=== PATIENT | female | born 1940 | race Caucasian/White ===

== ENCOUNTER 2016-12-01 10:15 | Emergency (ER) | payer OTHER ==
[2016-12-01 10:21] VITALS: TEMP 98.2
[2016-12-01] MEDS ORDERED: ONDANSETRON 4 MG/2 ML VIAL IVPB ONE (10:48)
[2016-12-01] MEDS ORDERED: morphine CARPU-JECT 2 MG/1 ML DISP.SYRIN IVPUSH ONE (10:48)
[2016-12-01] MEDS ORDERED: morphine CARPU-JECT 2 MG/1 ML DISP.SYRIN ONE (11:03)
[2016-12-01] MEDS ORDERED: ONDANSETRON 4 MG/2 ML VIAL ONE (11:04)
[2016-12-01 11:08] LABS: BASOPHIL 0.5 % (0-2.0); EOSINOPHIL 2.1 % (0-4.5); MCH 31.8 pg (25.7-33.7); MCHC 33.8 g/dl (32.0-36.0); MEAN PLT VOLUME 9.1 fl (7.5-11.1); NEUTROPHILS 67.8 % (42.8-82.8); PLATELET COUNT 228 K/MM3 (134-434); WHITE BLOOD COUNT 6.5 K/mm3 (4.0-10.0)
[2016-12-01 11:33] LABS: INR 1.06 (0.82-1.09); PROTHROMBIN TIME (PATIENT) 11.7 SEC (9.98-11.88)
[2016-12-01 11:36] LABS: ALBUMIN 3.3 g/dl (3.4-5.0); ANION GAP 9 (8-16); BILIRUBIN,TOTAL 0.3 mg/dL (0.2-1.0); CALCIUM 9.3 mg/dL (8.5-10.1); CO2 33 mmol/L (21-32); CREATININE 0.7 mg/dL (0.55-1.02); GLUCOSE,RANDOM 96 mg/dL (74-106); SGOT/AST 19 U/L (15-37); SGPT/ALT 20 U/L (12-78)
[2016-12-01 11:39] LABS: ALK PHOS 86 U/L (45-117); TOT PROT 7.2 g/dl (6.4-8.2); TROPONIN I < 0.02 ng/ml (0.00-0.05)
--- NOTE | 2016-12-01 11:39 | PDOC ---
History of Present Illness <Kaushik Franco - Last Filed: 12/01/16 15:11> - History of Present Illness Initial Comments: 12/01/16 12:58 The patient is a 76 year old female, with a significant past medical history of hypertension, kidney stones, who presents to the emergency department with positional right upper quadrant pain for 8 days. The patient states her pain is localized to the right upper quadrant of her abdomen with radiation to her back. She reports her pain is exacerbated with movement, but denies pain after eating. She reports having a laparoscopic procedure done in 2013. After reviewing the patients charts, the laparoscopic procedure was a cholecystectomy. She denies chest pain, shortness of breath, headache and dizziness. She denies fever, chills, nausea, vomit, diarrhea and constipation. She denies dysuria, frequency, urgency and hematuria. Allergies: NKDA Past surgical history: cholecystectomy 2013, hernia repair PCP - Dr. Perera <Ivy Mccormack - Last Filed: 12/01/16 15:21> - General Chief Complaint: Pain, Acute Stated Complaint: ABD PAIN Time Seen by Provider: 12/01/16 10:20 Past History - Past Medical History HTN: Yes Kidney Stones: Yes - Psycho/Social/Smoking Cessation Hx Anxiety: No Suicidal Ideation: No Smoking Status: No Smoking History: Never smoked Have you smoked in the past 12 months: No Number of Cigarettes Smoked Daily: 0 Information on smoking cessation initiated: No Hx Alcohol Use: No Drug/Substance Use Hx: No Substance Use Type: None Hx Substance Use Treatment: No <Kaushik Franco - Last Filed: 12/01/16 15:11> <Ivy Mccormack - Last Filed: 12/01/16 15:21> - Past Medical History Allergies/Adverse Reactions: Allergies Allergy/AdvReac Type Severity Reaction Status Date / Time No Known Allergies Allergy Verified 12/01/16 10:18 Home Medications: Ambulatory Orders Aspirin [Baby Aspirin] 81 mg PO DAILY 09/24/11 Captopril/Hydrochlorothiazide [Capozide 50/25 -] 1 tab PO DAILY 09/24/11 Omeprazole 20 mg PO DAILY 12/01/16 Review of Systems - Review of Systems Able to Perform ROS?: Yes Comments:: 12/01/16 12:59 GENERAL/CONSTITUTIONAL: No fever or chills. No weakness. HEAD, EYES, EARS, NOSE AND THROAT: No change in vision. No ear pain or discharge. No sore throat. CARDIOVASCULAR: No chest pain or shortness of breath. RESPIRATORY: No cough, wheezing, or hemoptysis. GASTROINTESTINAL: (+) RUQ pain with radiation to right back. No nausea, vomiting , diarrhea or constipation. GENITOURINARY: No dysuria, frequency, or change in urination. MUSCULOSKELETAL: No joint or muscle swelling or pain. No neck pain. SKIN: No rash NEUROLOGIC: No headache, vertigo, loss of consciousness, or change in strength/ sensation. ENDOCRINE: No increased thirst. No abnormal weight change. HEMATOLOGIC/LYMPHATIC: No anemia, easy bleeding, or history of blood clots. ALLERGIC/IMMUNOLOGIC: No hives or skin allergy. <Ivy Mccormack - Last Filed: 12/01/16 15:21> *Physical Exam - Vital Signs Last Vital Signs Temp Pulse Resp BP Pulse Ox 98.2 F 88 20 188/103 98 12/01/16 10:19 12/01/16 10:19 12/01/16 10:19 12/01/16 10:19 12/01/16 10:19 <Kaushik Franco - Last Filed: 12/01/16 15:11> - Vital Signs Last Vital Signs Temp Pulse Resp BP Pulse Ox 98.2 F 80 20 163/91 97 12/01/16 10:19 12/01/16 11:40 12/01/16 11:40 12/01/16 11:40 12/01/16 11:40 - Physical Exam Comments: 12/01/16 13:00 GENERAL: Awake, alert, and fully oriented, in no acute distress HEAD: No signs of trauma EYES: PERRLA, EOMI, sclera anicteric, conjunctiva clear ENT: Auricles normal inspection, hearing grossly normal, nares patent, oropharynx clear without exudates. Moist mucosa NECK: Normal ROM, supple, no lymphadenopathy, JVD, or masses LUNGS: Breath sounds equal, clear to auscultation bilaterally. No wheezes, and no crackles HEART: Regular rate and rhythm, normal S1 and S2, no murmurs, rubs or gallops ABDOMEN: (+) mildly ttp at the RUQ. No CVA tenderness. Soft, normoactive bowel sounds. No guarding, no rebound. No masses EXTREMITIES: Normal range of motion, no edema. No clubbing or cyanosis. No cords, erythema, or tenderness NEUROLOGICAL: Cranial nerves II through XII grossly intact. Normal speech, normal gait SKIN: Warm, Dry, normal turgor, no rashes or lesions noted. <Ivy Mccormack - Last Filed: 12/01/16 15:21> Heart Score/ECG Review - ECG Intrepretation Comment:: 12/01/16 15:20 EKG was read by Dr. Franco at 11:16 Impression: Normal sinus rhythm. Possible left atrial enlargement. Left ventricular hypertrophy. Vent. Rate: 75 bpm TX Interval: 140 ms QTc: 442 ms <Ivy Mccormack - Last Filed: 12/01/16 15:21> ED Treatment Course - LABORATORY CBC & Chemistry Diagram: 12/01/16 11:00 12/01/16 11:00 - ADDITIONAL ORDERS Additional order review: 12/01/16 11:00 RBC 4.28 D MCV 94.0 MCHC 33.8 RDW 13.0 MPV 9.1 Neutrophils % 67.8 Lymphocytes % 20.3 D Monocytes % 9.3 Eosinophils % 2.1 Basophils % 0.5 - RADIOLOGY Radiology Studies Ordered: Category Date Time Status ABDOMEN & PELVIS CT WITH CONTR [CT] Stat CT Scan 12/01/16 10:48 Ordered - Medications Given in the ED: ED Medications Discontinued Medications Generic Name Dose Route Start Last Admin Trade Name Freq PRN Reason Stop Dose Admin Morphine Sulfate 2 mg 12/01/16 10:48 12/01/16 11:09 Morphine Injection - IVPUSH 12/01/16 10:49 2 mg ONCE ONE Administration Ondansetron HCl 4 mg 12/01/16 10:48 12/01/16 11:09 Zofran Injection IVPB 12/01/16 10:49 4 mg ONCE ONE Administration <Kaushik Franco - Last Filed: 12/01/16 15:11> - LABORATORY CBC & Chemistry Diagram: 12/01/16 11:00 12/01/16 11:00 - ADDITIONAL ORDERS Additional order review: Laboratory Results 12/01/16 12/01/16 12/01/16 11:47 11:00 11:00 INR 1.06 Sodium 141 Potassium 4.0 Chloride 99 Carbon Dioxide 33 H Anion Gap 9 BUN 17 D Creatinine 0.7 Creat Clearance w eGFR > 60 Random Glucose 96 Calcium 9.3 Total Bilirubin 0.3 D AST 19 ALT 20 Alkaline Phosphatase 86 D Creatine Kinase 109 Troponin I < 0.02 Total Protein 7.2 D Albumin 3.3 L D Lipase 78 Urine Color Colorless Urine Appearance Clear Urine pH 7.0 Urine Protein Negative Urine Glucose (UA) Negative Urine Ketones Negative Urine Blood Negative Urine Nitrite Negative Urine Bilirubin Negative Urine Urobilinogen Negative Ur Leukocyte Esterase 1+ H 12/01/16 11:00 RBC 4.28 D MCV 94.0 MCHC 33.8 RDW 13.0 MPV 9.1 Neutrophils % 67.8 Lymphocytes % 20.3 D Monocytes % 9.3 Eosinophils % 2.1 Basophils % 0.5 - RADIOLOGY Radiograph Interpretation: 12/01/16 15:[address] was read by Dr. Luo at 14:48 Impression: s/p cholecystectomy with prominent biliary tree. No obvious obstruction is suggested. MRCP follow-up recommended. Tatiana mesentary of uncertain etiology. - Medications Given in the ED: ED Medications Discontinued Medications Generic Name Dose Route Start Last Admin Trade Name Freq PRN Reason Stop Dose Admin Morphine Sulfate 2 mg 12/01/16 10:48 12/01/16 11:09 Morphine Injection - IVPUSH 12/01/16 10:49 2 mg ONCE ONE Administration Ondansetron HCl 4 mg 12/01/16 10:48 12/01/16 11:09 Zofran Injection IVPB 12/01/16 10:49 4 mg ONCE ONE Administration <Ivy Mccormack - Last Filed: 12/01/16 15:21> Medical Decision Making - Medical Decision Making 12/01/16 10:44 The patient is a year old female who presents with RUQ for 8 days with no complaints of nausea or vomiting. The patients medical history is significant for kidney stones, hypertension, sp cholecystectomy. I will obtain abdominal CT scan to rule out pancreatitis, stone in common duct, gastritis <Ivy Mccormack - Last Filed: 12/01/16 15:21> *DC/Admit/Observation/Transfer - Discharge Dispostion Admit: No - Attestations Physician Attestion: 12/01/16 11:38 I, Dr. Kaushik Franco, attest that this document has been prepared under my direction and personally reviewed by me in its entirety. I further attest, that it accurately reflects all work, treatment, procedures and medical decision -making performed by me. <Kaushik Franco - Last Filed: 12/01/16 15:11> - Attestations Scribe Attestion: 12/01/16 13:01 Documentation prepared by Ivy Mccormack, acting as certified medical technician for Kaushik Franco MD <Ivy Mccormack - Last Filed: 12/01/16 15:21> Diagnosis at time of Disposition: Colic, biliary - Discharge Dispostion Disposition: HOME Condition at time of disposition: Improved - Referrals Referrals: Sera Perera MD [Primary Care Provider] - Carlitos Laboy MD [Staff Physician] - - Patient Instructions Additional Instructions: Farhana - Your CT Scan says you might have a gall stone in your common duct and that you need to have an MRCP- YOu need to see Dr Laboy so that they can order the test. Watch your diet until then. Return to us if problems. Best- Dr. Kaushik Ricks
[2016-12-01 12:05] LABS: URINE APPEARANCE CLEAR; URINE BILIRUBIN NEGATIVE (NEGATIVE); URINE BLOOD NEGATIVE (NEGATIVE); URINE COLOR COLORLESS; URINE GLUCOSE (UA) NEGATIVE (NEGATIVE); URINE KETONE NEGATIVE (NEGATIVE); URINE NITRITE NEGATIVE (NEGATIVE); URINE PROTEIN NEGATIVE (NEGATIVE); URINE UROBILINOGEN NEGATIVE E.U./dl (0.2-1.0)
[2016-12-01 12:14] LABS: URINE LEUK ESTERASE 1+ (NEGATIVE)
[2016-12-01 12:58] LABS: URINE WBC 3 /hpf (3-5)
--- NOTE | 2016-12-01 14:03 | EKG ---
Test Reason : Blood Pressure : / mmHG Vent. Rate : 075 BPM Atrial Rate : 075 BPM P-R Int : 140 ms QRS Dur : 102 ms QT Int : 396 ms P-R-T Axes : 039 -28 001 degrees QTc Int : 442 ms NORMAL SINUS RHYTHM POSSIBLE LEFT ATRIAL ENLARGEMENT LEFT VENTRICULAR HYPERTROPHY ABNORMAL ECG WHEN COMPARED WITH ECG OF 16-OCT-2013 01:14, VENT. RATE HAS DECREASED Confirmed by ISABELA THOMPSON MD ([id number]) on 12/01/2016 2:03:26 PM Referred By: Confirmed By:ISABELA THOMPSON MD
[2016-12-01 15:19] VITALS: BP 141/80; PULSE 74
== END 2016-12-01 15:48 | disposition home or self-care (01) ==
LOC: JER 10:15
PROC: 3E033NZ Introduction of Analgesics, Hypnotics, Sedatives into Peripheral Vein, Percutaneous Approach (ICD-10-PCS; principal; 2016-12-01)
PROC: 3E033GC Introduction of Other Therapeutic Substance into Peripheral Vein, Percutaneous Approach (ICD-10-PCS; 2016-12-01)
DX: K80.50 Calculus of bile duct without cholangitis or cholecystitis without obstruction (principal)
CPT/HCPCS: 36415; 74177-TC; 80053; 81003; 81015; 82550; 83690; 84484; 85025; 85610; 93005; 93010; 96374; 96375; 99283-25

== ENCOUNTER 2021-03-08 12:59 | Emergency (ER) | payer OTHER ==
[2021-03-08] MEDS ORDERED: ACETAMINOPHEN 1000 MG/100 ML VIAL (NON FORMULARY) IVPB ONE (13:34)
[2021-03-08 13:46] VITALS: BP 156/74; BMI 28.3
[2021-03-08 13:57] VITALS: PULSE 84; TEMP 98.3
[2021-03-08] MEDS ORDERED: ACETAMINOPHEN INJECTION 100 ML IVPB ONE (14:14)
[2021-03-08 14:41] LABS: BASO % 0.5 % (0-2.0); HEMOGLOBIN 12.5 GM/dL (10.7-15.3); LYMPH % 12.7 % (8-40); MCHC 32.9 g/dl (32.0-36.0); MEAN CELL VOLUME 94.2 fl (80-96); MEAN PLT VOLUME 9.4 fl (7.5-11.1); MONO % 7.6 % (3.8-10.2); NEUT % 78.2 % (42.8-82.8); PLATELET COUNT 267 10^3/uL (134-434); RBC 4.03 M/mm3 (3.60-5.2); RDW 14.1 % (11.6-15.6); WHITE BLOOD COUNT 11.1 K/mm3 (4.0-10.0)
[2021-03-08 15:09] LABS: ALBUMIN 3.3 g/dl (3.4-5.0); BLOOD UREA NITROGEN 16.6 mg/dL (7-18); CALCIUM 8.8 mg/dL (8.5-10.1); CO2 33 mmol/L (21-32); GLUCOSE,RANDOM 128 mg/dL (74-106)
[2021-03-08 15:12] LABS: SGOT/AST 25 U/L (15-37); SGPT/ALT 20 U/L (13-61)
[2021-03-08 15:13] LABS: CREATININE 0.8 mg/dL (0.55-1.3)
[2021-03-08 15:14] LABS: BILIRUBIN,TOTAL 0.4 mg/dL (0.2-1); TOT PROT 7.1 g/dl (6.4-8.2)
[2021-03-08 15:15] LABS: ALK PHOS 79 U/L (45-117)
[2021-03-08 15:38] LABS: ANION GAP 3 MMOL/L (8-16); CHLORIDE 105 mmol/L (98-107); SODIUM 141 mmol/L (136-145)
[2021-03-08] MEDS ORDERED: KETOROLAC TROMETHAMINE 30 MG/1 ML VIAL IVPUSH ONE (17:20)
[2021-03-08] MEDS ORDERED: KETOROLAC TROMETHAMINE 15 MG/ML VIAL ONE (17:30)
[2021-03-08] MEDS ORDERED: DICYCLOMINE HCL 20 MG/2 ML AMPUL IM ONE (18:15)
[2021-03-08] MEDS ORDERED: DICYCLOMINE HCL 10 MG CAPSULE ONE (18:36)
[2021-03-08 18:38] LABS: URINE APPEARANCE CLEAR; URINE BILIRUBIN NEGATIVE (NEGATIVE); URINE COLOR YELLOW; URINE GLUCOSE (UA) NEGATIVE (NEGATIVE); URINE KETONE NEGATIVE (NEGATIVE); URINE LEUK ESTERASE NEGATIVE (NEGATIVE); URINE NITRITE NEGATIVE (NEGATIVE); URINE PROTEIN NEGATIVE (NEGATIVE); URINE UROBILINOGEN 0.2 mg/dL (0.2-1.0)
[2021-03-08] MEDS ORDERED: DICYCLOMINE HCL 10 MG CAPSULE PO ONE (18:39)
[2021-03-08] MEDS ORDERED: LIDOCAINE 5% TOPICAL PATCH TP ONE ×2 (20:12→21:11)
[2021-03-08] MEDS ORDERED: LIDOCAINE 5% TOPICAL PATCH ONE ×2 (20:18→21:26)
[2021-03-08] MEDS ORDERED: LIDOCAINE PATCH REMOVAL MC SCH (22:00)
[2021-03-09] MEDS ORDERED: LIDOCAINE PATCH REMOVAL MC ONE (08:00)
== END 2021-03-08 22:26 | disposition home or self-care (01) ==
LOC: JER 12:59
PROC: 3E0333Z Introduction of Anti-inflammatory into Peripheral Vein, Percutaneous Approach (ICD-10-PCS; principal; 2021-03-08)
PROC: 3E0333Z Introduction of Anti-inflammatory into Peripheral Vein, Percutaneous Approach (ICD-10-PCS; 2021-03-08)
DX: M54.5 Low back pain (principal); R10.32 Left lower quadrant pain
CPT/HCPCS: 36415; 71045-TC-FY; 73523-TC-FY; 74177-TC; 80053; 81003; 83605; 84484; 85025; 87086; 96374; 96375; 99285-25; J0131; Q9967

== ENCOUNTER 2021-03-17 09:50 | Emergency (ER) | payer OTHER ==
[2021-03-17 09:57] VITALS: TEMP 98.4; BMI 36.1
[2021-03-17] MEDS ORDERED: ACETAMINOPHEN 1000 MG/100 ML VIAL (NON FORMULARY) IVPB ONE (10:28)
[2021-03-17] MEDS ORDERED: ACETAMINOPHEN INJECTION 100 ML IVPB ONE (11:20)
[2021-03-17 12:20] LABS: BASO % 0.6 % (0-2.0); HEMATOCRIT 37.3 % (32.4-45.2); HEMOGLOBIN 12.3 GM/dL (10.7-15.3); LYMPH % 22.3 % (8-40); MCH 30.7 pg (25.7-33.7); MEAN PLT VOLUME 9.2 fl (7.5-11.1); MONO % 9.4 % (3.8-10.2); NEUT % 64.7 % (42.8-82.8); PLATELET COUNT 255 10^3/uL (134-434); RBC 4.01 M/mm3 (3.60-5.2); WHITE BLOOD COUNT 7.8 K/mm3 (4.0-10.0)
[2021-03-17 12:25] LABS: CHLORIDE 105 mmol/L (98-107); SODIUM 139 mmol/L (136-145)
[2021-03-17 12:29] LABS: ANION GAP 4 MMOL/L (8-16); BLOOD UREA NITROGEN 10.9 mg/dL (7-18); CALCIUM 8.8 mg/dL (8.5-10.1); CO2 30 mmol/L (21-32); GLUCOSE,RANDOM 98 mg/dL (74-106); LIPASE 48 U/L (73-393)
[2021-03-17 12:32] LABS: CREATININE 0.6 mg/dL (0.55-1.3); SGOT/AST 36 U/L (15-37); SGPT/ALT 23 U/L (13-61)
[2021-03-17 12:33] LABS: BILIRUBIN,TOTAL 0.6 mg/dL (0.2-1)
[2021-03-17 12:34] LABS: TOT PROT 6.8 g/dl (6.4-8.2)
[2021-03-17 12:35] LABS: ALK PHOS 68 U/L (45-117)
[2021-03-17] MEDS ORDERED: SODIUM CHLORIDE 0.9% 500 ML INFUS.BAG IV ONE (15:30)
[2021-03-17 18:10] LABS: URINE APPEARANCE CLEAR; URINE BILIRUBIN NEGATIVE (NEGATIVE); URINE COLOR YELLOW; URINE GLUCOSE (UA) NEGATIVE (NEGATIVE); URINE KETONE NEGATIVE (NEGATIVE); URINE LEUK ESTERASE NEGATIVE (NEGATIVE); URINE NITRITE NEGATIVE (NEGATIVE); URINE PROTEIN NEGATIVE (NEGATIVE)
[2021-03-17 20:44] VITALS: BP 188/102; PULSE 88
== END 2021-03-17 20:46 | disposition home or self-care (01) ==
LOC: JER 09:50
PROC: 3E033GC Introduction of Other Therapeutic Substance into Peripheral Vein, Percutaneous Approach (ICD-10-PCS; principal; 2021-03-17)
DX: R10.32 Left lower quadrant pain (principal)
CPT/HCPCS: 36415; 74177-TC; 80053; 81003; 82550; 83605; 83690; 84484; 85025; 87086; 93005; 93010; 96374; 99285-25; C9803; J0131; Q9967; U0003; U0005

== ENCOUNTER 2021-08-12 13:54 | Emergency (ER) | payer OTHER ==
[2021-08-12 14:59] VITALS: TEMP 98.1; BMI 31.2
[2021-08-12] MEDS ORDERED: ASPIRIN 81 MG CHEWABLE TABLETS PO ONE (16:22)
[2021-08-12] MEDS ORDERED: ASPIRIN 81 MG CHEWABLE TABLETS ONE (16:37)
[2021-08-12] MEDS ORDERED: SODIUM CHLORIDE 0.9% 500 ML INFUS.BAG IV ONE (17:54)
[2021-08-12 18:34] LABS: BASO % 0.3 % (0-2.0); EOS % 1.7 % (0-4.5); HEMATOCRIT 36.5 % (32.4-45.2); LYMPH % 28.1 % (8-40); MCH 29.9 pg (25.7-33.7); MEAN CELL VOLUME 90.7 fl (80-96); MEAN PLT VOLUME 9.3 fl (7.5-11.1); MONO % 11.9 % (3.8-10.2); PLATELET COUNT 238 10^3/uL (134-434); RBC 4.02 M/mm3 (3.60-5.2); WHITE BLOOD COUNT 6.4 K/mm3 (4.0-10.0)
[2021-08-12 18:41] LABS: INR 1.05 (0.83-1.09); PROTHROMBIN TIME (PATIENT) 12.1 SEC (9.7-13.0)
[2021-08-12 18:44] LABS: ACTIVATED PTT 28.4 SECONDS (25.2-36.5)
[2021-08-12 18:51] LABS: ALBUMIN 3.4 g/dl (3.4-5.0); BLOOD UREA NITROGEN 18.8 mg/dL (7-18); CALCIUM 9.1 mg/dL (8.5-10.1)
[2021-08-12 18:54] LABS: CREATININE 0.7 mg/dL (0.55-1.3)
[2021-08-12 18:56] LABS: BILIRUBIN,TOTAL 0.4 mg/dL (0.2-1); TOT PROT 6.7 g/dl (6.4-8.2)
[2021-08-12 19:56] VITALS: BP 146/78; PULSE 85
== END 2021-08-12 20:06 ==
LOC: JER 13:54
DX: I10 Essential (primary) hypertension (principal); R07.89 Other chest pain
CPT/HCPCS: 36415; 71046-TC-FY; 80053; 84484; 85025; 85610; 85730; 93005; 93010; 99284-25; C9803; U0003; U0005

== ENCOUNTER 2021-09-04 08:10 | Observation (INO) | payer OTHER ==
[2021-09-04] MEDS ORDERED: ACETAMINOPHEN 1000 MG/100 ML BAG IVPB ONE (08:48)
[2021-09-04] MEDS ORDERED: ACETAMINOPHEN INJECTION 100 ML IVPB ONE (09:08)
[2021-09-04 09:23] LABS: BASO % 0.5 % (0-2.0); EOS % 2.1 % (0-4.5); HEMATOCRIT 38.6 % (32.4-45.2); HEMOGLOBIN 12.6 GM/dL (10.7-15.3); LYMPH % 22.1 % (8-40); MCHC 32.8 g/dl (32.0-36.0); MEAN CELL VOLUME 91.5 fl (80-96); MEAN PLT VOLUME 9.6 fl (7.5-11.1); MONO % 9.8 % (3.8-10.2); NEUT % 65.5 % (42.8-82.8); PLATELET COUNT 229 10^3/uL (134-434); RBC 4.21 M/mm3 (3.60-5.2); RDW 14.8 % (11.6-15.6)
[2021-09-04 09:45] LABS: ALBUMIN 3.3 g/dl (3.4-5.0); BLOOD UREA NITROGEN 20.5 mg/dL (7-18); CALCIUM 8.8 mg/dL (8.5-10.1)
[2021-09-04 09:46] LABS: MAGNESIUM 2.2 mg/dL (1.8-2.4)
[2021-09-04 09:47] LABS: EPI CELLS 11 /uL (0-25.1); HYALINE CASTS 0 /uL (0-3.1); URINE APPEARANCE CLEAR; URINE BACTERIA 164 /uL (0-1359); URINE BILIRUBIN NEGATIVE (NEGATIVE); URINE COLOR YELLOW; URINE GLUCOSE (UA) NEGATIVE (NEGATIVE); URINE KETONE NEGATIVE (NEGATIVE); URINE LEUK ESTERASE 1+ (NEGATIVE); URINE NITRITE NEGATIVE (NEGATIVE); URINE PROTEIN NEGATIVE (NEGATIVE); URINE RBC 8 /uL (0-23.9); URINE UROBILINOGEN 0.2 mg/dL (0.2-1.0); URINE WBC 9 /uL (0-25.8)
[2021-09-04 09:48] LABS: CREATININE 0.7 mg/dL (0.55-1.3)
[2021-09-04 09:50] LABS: BILIRUBIN,TOTAL 0.4 mg/dL (0.2-1); TOT PROT 6.9 g/dl (6.4-8.2)
[2021-09-04] MEDS ORDERED: ACETAMINOPHEN 325 MG TABLET (FP) PO PRN (11:35)
[2021-09-04] MEDS ORDERED: LISINOPRIL 20 MG TABLET PO ONE (17:31)
[2021-09-04] MEDS: INSULIN SLIDING SCALE (NOVOLOG) 1 VIAL SQ SCH (18:20)
[2021-09-04] MEDS ORDERED: LISINOPRIL 20 MG TABLET ONE (18:49)
[2021-09-04] MEDS ORDERED: ATORVASTATIN CA 40 MG TABLET (FP) ONE (20:55)
[2021-09-04] MEDS ORDERED: GABAPENTIN 100 MG CAPSULE ONE (20:56)
[2021-09-04] MEDS: ATORVASTATIN CA 40 MG TABLET (FP) PO SCH (21:10)
[2021-09-04] MEDS: GABAPENTIN 100 MG CAPSULE PO SCH (21:10)
[2021-09-05 06:36] VITALS: BMI 34.7
[2021-09-05] MEDS: INSULIN SLIDING SCALE (NOVOLOG) 1 VIAL SQ SCH ×3 (06:40→16:37)
[2021-09-05 08:43] LABS: HEMATOCRIT 35.9 % (32.4-45.2); HEMOGLOBIN 11.9 GM/dL (10.7-15.3); MCH 30.2 pg (25.7-33.7); MCHC 33.2 g/dl (32.0-36.0); MEAN CELL VOLUME 90.9 fl (80-96); MEAN PLT VOLUME 9.2 fl (7.5-11.1); PLATELET COUNT 205 10^3/uL (134-434); RBC 3.95 M/mm3 (3.60-5.2); RDW 15.1 % (11.6-15.6); WHITE BLOOD COUNT 6.1 K/mm3 (4.0-10.0)
[2021-09-05 09:22] LABS: BLOOD UREA NITROGEN 20.8 mg/dL (7-18); CALCIUM 8.7 mg/dL (8.5-10.1)
[2021-09-05 09:23] LABS: MAGNESIUM 2.2 mg/dL (1.8-2.4)
[2021-09-05 09:26] LABS: CREATININE 0.7 mg/dL (0.55-1.3); PHOSPHOROUS 3.9 mg/dL (2.5-4.9)
[2021-09-05] MEDS ORDERED: LISINOPRIL 20 MG TABLET PO SCH (10:00)
[2021-09-05] MEDS ORDERED: REGADENOSON 0.4 MG/5 ML PRE-FILLED SYRINGE IVPUSH ONE ×2 (10:00→10:49)
[2021-09-05] MEDS: ENOXAPARIN NA (PORCINE) 40 MG/0.4 ML DISP.SYRIN SQ SCH (12:38)
[2021-09-05] MEDS: FUROSEMIDE 40 MG TABLET (FP) PO SCH (12:38)
[2021-09-05] MEDS: GABAPENTIN 100 MG CAPSULE PO SCH ×2 (12:38→21:24)
[2021-09-05] MEDS: PANTOPRAZOLE 40 MG TABLET PO SCH (12:38)
[2021-09-05] MEDS: ASPIRIN 81 MG CHEWABLE TABLETS PO SCH (12:38)
[2021-09-05] MEDS: LISINOPRIL 20 MG TABLET PO SCH (12:38)
[2021-09-05 13:07] LABS: SARS-CoV-2 NAA Not Detected (Not Detected)
[2021-09-05] MEDS: ATORVASTATIN CA 40 MG TABLET (FP) PO SCH (21:24)
[2021-09-06] MEDS: INSULIN SLIDING SCALE (NOVOLOG) 1 VIAL SQ SCH (06:20)
[2021-09-06 08:21] VITALS: BP 157/79; PULSE 82; TEMP 98
[2021-09-06] MEDS: FUROSEMIDE 40 MG TABLET (FP) PO SCH (09:54)
[2021-09-06] MEDS: ENOXAPARIN NA (PORCINE) 40 MG/0.4 ML DISP.SYRIN SQ SCH (09:54)
[2021-09-06] MEDS: GABAPENTIN 100 MG CAPSULE PO SCH (09:54)
[2021-09-06] MEDS: LISINOPRIL 20 MG TABLET PO SCH (09:54)
[2021-09-06] MEDS: ASPIRIN 81 MG CHEWABLE TABLETS PO SCH (09:54)
[2021-09-06] MEDS: PANTOPRAZOLE 40 MG TABLET PO SCH (09:54)
== END 2021-09-06 13:18 | disposition home or self-care (01) ==
LOC: JER 08:10 → UNDOADMOB 10:44 → JERBED 10:44 → INTOOBSV 10:44 → JERBED 11:32 → J4W 09-05 05:22
PROVIDERS: ADMIT Internal Medicine; ATTEND Internal Medicine
PROC: 3E033NZ Introduction of Analgesics, Hypnotics, Sedatives into Peripheral Vein, Percutaneous Approach (ICD-10-PCS; principal; 2021-09-04)
PROC: 3E023GC Introduction of Other Therapeutic Substance into Muscle, Percutaneous Approach (ICD-10-PCS; 2021-09-04)
PROC: 3E033GC Introduction of Other Therapeutic Substance into Peripheral Vein, Percutaneous Approach (ICD-10-PCS; 2021-09-04)
DX: R07.9 Chest pain, unspecified (principal); E11.9 Type 2 diabetes mellitus without complications; I10 Essential (primary) hypertension; E66.9 Obesity, unspecified; Z68.34 Body mass index [BMI] 34.0-34.9, adult; N20.0 Calculus of kidney; E78.00 Pure hypercholesterolemia, unspecified
CPT/HCPCS: 36415; 71045-TC-FY; 78452-TC; 80048; 80053; 80061; 81003; 82550; 82553; 82962; 83036; 83735; 84100; 84132; 84439; 84443; 84484; 85025; 85027; 87086; 93005; 93010; 93017; 93306-TC; 96372; 96374; 96375; 99285-25; A9502; C9803; G0378; J2785; U0003; U0005

== ENCOUNTER 2021-09-17 10:26 | Emergency (ER) | payer OTHER ==
[2021-09-17 10:33] VITALS: TEMP 98.7; BMI 32.1
[2021-09-17] MEDS ORDERED: ACETAMINOPHEN 325 MG TABLET (FP) PO ONE (11:24)
[2021-09-17] MEDS ORDERED: LISINOPRIL 20 MG TABLET PO ONE (11:35)
[2021-09-17] MEDS ORDERED: LISINOPRIL 20 MG TABLET ONE (11:42)
[2021-09-17] MEDS ORDERED: ACETAMINOPHEN 325 MG TABLET (FP) ONE (11:43)
[2021-09-17 12:12] LABS: BASO % 0.4 % (0-2.0); EOS % 2.7 % (0-4.5); HEMATOCRIT 39.9 % (32.4-45.2); HEMOGLOBIN 13.3 GM/dL (10.7-15.3); LYMPH % 25.8 % (8-40); MCH 30.1 pg (25.7-33.7); MCHC 33.2 g/dl (32.0-36.0); MEAN CELL VOLUME 90.6 fl (80-96); MEAN PLT VOLUME 9.9 fl (7.5-11.1); MONO % 9.6 % (3.8-10.2); NEUT % 61.5 % (42.8-82.8); PLATELET COUNT 203 10^3/uL (134-434); RDW 14.3 % (11.6-15.6); WHITE BLOOD COUNT 7.8 K/mm3 (4.0-10.0)
[2021-09-17 12:20] LABS: INR 1.04 (0.83-1.09)
[2021-09-17 12:32] LABS: CALCIUM 9.3 mg/dL (8.5-10.1)
[2021-09-17 12:33] LABS: ALBUMIN 3.5 g/dl (3.4-5.0); BLOOD UREA NITROGEN 15.4 mg/dL (7-18)
[2021-09-17 12:36] LABS: CREATININE 0.7 mg/dL (0.55-1.3)
[2021-09-17 12:38] LABS: BILIRUBIN,TOTAL 0.8 mg/dL (0.2-1)
[2021-09-17] MEDS ORDERED: hydrOXYzine PAMOATE 25 MG CAPSULE (FP) PO PRN (14:17)
[2021-09-17] MEDS ORDERED: hydrOXYzine PAMOATE 25 MG CAPSULE (FP) PO ONE ×2 (15:03→15:06)
[2021-09-17 16:10] VITALS: BP 162/85; PULSE 75
== END 2021-09-17 17:19 | disposition home or self-care (01) ==
LOC: JER 10:26
DX: R07.9 Chest pain, unspecified (principal)
CPT/HCPCS: 36415; 71046-TC-FY; 71275-TC; 80053; 83735; 84484; 85025; 85379; 85610; 93005; 93010; 99285-25; Q9967

== ENCOUNTER 2021-11-09 15:05 | Observation (INO) | payer OTHER ==
[2021-11-09 18:11] LABS: BASO % 0.7 % (0-2.0); EOS % 1.8 % (0-4.5); HEMATOCRIT 36.8 % (32.4-45.2); HEMOGLOBIN 12.3 GM/dL (10.7-15.3); LYMPH % 26.8 % (8-40); MCH 30.2 pg (25.7-33.7); MCHC 33.3 g/dl (32.0-36.0); MEAN CELL VOLUME 90.4 fl (80-96); MEAN PLT VOLUME 9.4 fl (7.5-11.1); MONO % 15.2 % (3.8-10.2); NEUT % 55.5 % (42.8-82.8); PLATELET COUNT 211 10^3/uL (134-434); RBC 4.07 M/mm3 (3.60-5.2); RDW 14.6 % (11.6-15.6); WHITE BLOOD COUNT 6.4 K/mm3 (4.0-10.0)
[2021-11-09 18:32] LABS: ALBUMIN 3.2 g/dl (3.4-5.0); CALCIUM 9.4 mg/dL (8.5-10.1)
[2021-11-09 18:33] LABS: BLOOD UREA NITROGEN 14.1 mg/dL (7-18)
[2021-11-09 18:35] LABS: CREATININE 0.6 mg/dL (0.55-1.3)
[2021-11-09 18:37] LABS: BILIRUBIN,TOTAL 0.6 mg/dL (0.2-1); TOT PROT 6.8 g/dl (6.4-8.2)
[2021-11-09] MEDS ORDERED: HYDROCHLOROTHIAZIDE 12.5 MG CAPSULE (FP) PO SCH (22:28)
[2021-11-09 23:33] LABS: EPI CELLS 17 /uL (0-25.1); HYALINE CASTS 2 /uL (0-3.1); PH,URINE 5.5 (5.0-8.0); URINE APPEARANCE CLEAR; URINE BACTERIA 50 /uL (0-1359); URINE BILIRUBIN NEGATIVE (NEGATIVE); URINE COLOR YELLOW; URINE GLUCOSE (UA) NEGATIVE (NEGATIVE); URINE KETONE NEGATIVE (NEGATIVE); URINE LEUK ESTERASE 2+ (NEGATIVE); URINE NITRITE NEGATIVE (NEGATIVE); URINE PROTEIN NEGATIVE (NEGATIVE); URINE RBC 4 /uL (0-23.9); URINE WBC 70 /uL (0-25.8)
[2021-11-10] MEDS: INSULIN SLIDING SCALE (NOVOLOG) 1 VIAL SQ SCH ×4 (06:53→21:47)
[2021-11-10 07:26] LABS: BASO % 1.3 % (0-2.0); EOS % 3.7 % (0-4.5); HEMOGLOBIN 12.1 GM/dL (10.7-15.3); MCH 30.5 pg (25.7-33.7); MCHC 33.6 g/dl (32.0-36.0); MEAN CELL VOLUME 90.9 fl (80-96); MEAN PLT VOLUME 10.1 fl (7.5-11.1); MONO % 16.8 % (3.8-10.2); NEUT % 50.2 % (42.8-82.8); PLATELET COUNT 203 10^3/uL (134-434); RBC 3.96 M/mm3 (3.60-5.2); RDW 14.5 % (11.6-15.6); WHITE BLOOD COUNT 5.8 K/mm3 (4.0-10.0)
[2021-11-10 07:46] LABS: CALCIUM 8.8 mg/dL (8.5-10.1); MAGNESIUM 1.9 mg/dL (1.8-2.4)
[2021-11-10 07:47] LABS: BLOOD UREA NITROGEN 16.1 mg/dL (7-18)
[2021-11-10 07:49] LABS: CREATININE 0.6 mg/dL (0.55-1.3); PHOSPHOROUS 4.8 mg/dL (2.5-4.9)
[2021-11-10 07:50] LABS: TOT PROT 6.5 g/dl (6.4-8.2)
[2021-11-10 07:51] LABS: BILIRUBIN,TOTAL 0.5 mg/dL (0.2-1)
[2021-11-10] MEDS ORDERED: PANTOPRAZOLE 40 MG TABLET PO ONE (08:48)
[2021-11-10] MEDS ORDERED: GABAPENTIN 100 MG CAPSULE ONE (08:48)
[2021-11-10] MEDS ORDERED: ASPIRIN COATED 81 MG TABLET.EC ONE (08:48)
[2021-11-10] MEDS ORDERED: ENOXAPARIN NA (PORCINE) 40 MG/0.4 ML DISP.SYRIN SQ ONE (08:49)
[2021-11-10] MEDS: HYDROCHLOROTHIAZIDE 12.5 MG CAPSULE (FP) PO SCH (09:05)
[2021-11-10] MEDS: GABAPENTIN 100 MG CAPSULE PO SCH ×2 (09:05→21:42)
[2021-11-10] MEDS: ASPIRIN COATED 81 MG TABLET.EC PO SCH (09:05)
[2021-11-10] MEDS ORDERED: ENOXAPARIN NA (PORCINE) 40 MG/0.4 ML DISP.SYRIN SQ SCH (10:00)
[2021-11-10] MEDS ORDERED: ASPIRIN 81 MG CHEWABLE TABLETS PO SCH (10:00)
[2021-11-10] MEDS ORDERED: PANTOPRAZOLE 40 MG TABLET PO SCH (10:00)
[2021-11-10] MEDS ORDERED: SIMETHICONE 80 MG TAB.CHEW (FP) PO PRN (11:53)
[2021-11-10] MEDS ORDERED: HEPARIN NA (PORCINE) 5,000 UNITS/ML 1ML VIAL ONE (14:12)
[2021-11-10] MEDS: HEPARIN NA (PORCINE) 5,000 UNITS/ML 1ML VIAL SQ SCH ×2 (14:25→21:42)
[2021-11-10 15:52] VITALS: BMI 33.0
[2021-11-10] MEDS: LISINOPRIL 20 MG TABLET PO SCH (21:42)
[2021-11-11] MEDS: INSULIN SLIDING SCALE (NOVOLOG) 1 VIAL SQ SCH ×4 (06:49→21:51)
[2021-11-11] MEDS: HEPARIN NA (PORCINE) 5,000 UNITS/ML 1ML VIAL SQ SCH ×3 (06:50→21:45)
[2021-11-11] MEDS ORDERED: INSULIN (LEVEMIR) 100 UNITS/ML UNITS SQ ONE (07:04)
[2021-11-11 08:46] LABS: INR 1.08 (0.83-1.09); PROTHROMBIN TIME (PATIENT) 12.4 SEC (9.7-13.0)
[2021-11-11 08:59] LABS: BASO % 0.3 % (0-2.0); EOS % 3.7 % (0-4.5); HEMATOCRIT 36.6 % (32.4-45.2); HEMOGLOBIN 11.9 GM/dL (10.7-15.3); LYMPH % 31.5 % (8-40); MCH 29.8 pg (25.7-33.7); MCHC 32.6 g/dl (32.0-36.0); MEAN CELL VOLUME 91.4 fl (80-96); MEAN PLT VOLUME 10.6 fl (7.5-11.1); MONO % 13.8 % (3.8-10.2); NEUT % 50.7 % (42.8-82.8); PLATELET COUNT 225 10^3/uL (134-434); RDW 14.6 % (11.6-15.6); WHITE BLOOD COUNT 6.1 K/mm3 (4.0-10.0)
[2021-11-11 09:00] LABS: BLOOD UREA NITROGEN 21.4 mg/dL (7-18); CALCIUM 8.8 mg/dL (8.5-10.1); MAGNESIUM 2.1 mg/dL (1.8-2.4)
[2021-11-11 09:03] LABS: CREATININE 0.7 mg/dL (0.55-1.3)
[2021-11-11 09:05] LABS: BILIRUBIN,TOTAL 0.6 mg/dL (0.2-1); TOT PROT 6.5 g/dl (6.4-8.2)
[2021-11-11] MEDS: PANTOPRAZOLE 40 MG TABLET PO SCH (09:46)
[2021-11-11] MEDS: HYDROCHLOROTHIAZIDE 12.5 MG CAPSULE (FP) PO SCH (09:47)
[2021-11-11] MEDS: ASPIRIN COATED 81 MG TABLET.EC PO SCH (09:47)
[2021-11-11] MEDS: GABAPENTIN 100 MG CAPSULE PO SCH ×2 (09:47→21:45)
[2021-11-11] MEDS: LISINOPRIL 20 MG TABLET PO SCH (21:45)
[2021-11-12 05:31] VITALS: BP 130/73; PULSE 81; TEMP 98.1
[2021-11-12] MEDS: HEPARIN NA (PORCINE) 5,000 UNITS/ML 1ML VIAL SQ SCH (06:25)
[2021-11-12] MEDS: INSULIN SLIDING SCALE (NOVOLOG) 1 VIAL SQ SCH ×2 (06:28→11:04)
[2021-11-12 08:15] LABS: BASO % 0.7 % (0-2.0); EOS % 3.2 % (0-4.5); HEMATOCRIT 36.2 % (32.4-45.2); HEMOGLOBIN 12.2 GM/dL (10.7-15.3); LYMPH % 32.4 % (8-40); MCH 30.6 pg (25.7-33.7); MCHC 33.6 g/dl (32.0-36.0); MEAN CELL VOLUME 90.9 fl (80-96); MEAN PLT VOLUME 9.9 fl (7.5-11.1); MONO % 15.1 % (3.8-10.2); NEUT % 48.6 % (42.8-82.8); PLATELET COUNT 205 10^3/uL (134-434); RBC 3.99 M/mm3 (3.60-5.2); RDW 14.4 % (11.6-15.6); WHITE BLOOD COUNT 5.9 K/mm3 (4.0-10.0)
[2021-11-12 08:31] LABS: CALCIUM 9.1 mg/dL (8.5-10.1)
[2021-11-12 08:32] LABS: BLOOD UREA NITROGEN 20.6 mg/dL (7-18)
[2021-11-12 08:35] LABS: CREATININE 0.7 mg/dL (0.55-1.3)
[2021-11-12 08:37] LABS: BILIRUBIN,TOTAL 0.5 mg/dL (0.2-1); TOT PROT 6.5 g/dl (6.4-8.2)
[2021-11-12] MEDS: GABAPENTIN 100 MG CAPSULE PO SCH (09:28)
[2021-11-12] MEDS: HYDROCHLOROTHIAZIDE 12.5 MG CAPSULE (FP) PO SCH (09:28)
[2021-11-12] MEDS: PANTOPRAZOLE 40 MG TABLET PO SCH (09:28)
[2021-11-12] MEDS: ASPIRIN COATED 81 MG TABLET.EC PO SCH (09:28)
== END 2021-11-12 15:13 | disposition home or self-care (01) ==
LOC: JER 15:05 → JERBED 19:20 → J6S 11-10 14:37
PROVIDERS: ADMIT Internal Medicine; ATTEND Nurse Practitioner Family
PROC: 3E013GC Introduction of Other Therapeutic Substance into Subcutaneous Tissue, Percutaneous Approach (ICD-10-PCS; principal; 2021-11-09)
DX: R07.89 Other chest pain (principal); I10 Essential (primary) hypertension; R94.5 Abnormal results of liver function studies; E78.5 Hyperlipidemia, unspecified; E11.9 Type 2 diabetes mellitus without complications; K83.8 Other specified diseases of biliary tract; K71.9 Toxic liver disease, unspecified; E66.9 Obesity, unspecified; Z68.33 Body mass index [BMI] 33.0-33.9, adult; Z79.82 Long term (current) use of aspirin; Z79.84 Long term (current) use of oral hypoglycemic drugs
CPT/HCPCS: 0241U-QW; 36415; 71045-TC-FY; 74181-TC; 76705-TC; 80053; 80061; 80307; 81003; 82550; 82728; 82962; 82977; 83540; 83550; 83690; 83735; 84100; 84443; 84484; 85025; 85610; 86708; 86803; 87340; 87517; 87807; 93005; 93010; 93306-TC; 96372; 99285-25; C9803-CS; G0378; J1644; U0003; U0005

== ENCOUNTER 2022-07-19 18:59 | Inpatient (IN) | payer OTHER ==
[2022-07-19 19:27] VITALS: BMI 33.2
[2022-07-19] MEDS ORDERED: LACTATED RINGERS SOLUTION 1000 ML INFUS.BAG IV ONE (20:13)
[2022-07-19] MEDS ORDERED: DEXAMETHASONE SOD PHOSPHATE 10 MG/1 ML VIAL IVPUSH ONE (20:13)
[2022-07-19] MEDS ORDERED: DEXAMETHASONE SOD PHOSPHATE 10 MG/1 ML VIAL ONE (20:14)
[2022-07-19] MEDS ORDERED: MAGNESIUM SULF 50% (8.12 MEQ/2 ML-1 GM VIAL) IVPB ONE (20:14)
[2022-07-19] MEDS ORDERED: ASPIRIN 81 MG CHEWABLE TABLETS PO ONE (20:14)
[2022-07-19] MEDS ORDERED: MAGNESIUM SULFATE IN WATER 2 GM/50 ML IVPB IVPB ONE (20:15)
[2022-07-19] MEDS ORDERED: ASPIRIN 81 MG CHEWABLE TABLETS ONE (20:15)
[2022-07-19 20:26] LABS: BASO % 0.4 % (0-2.0); HEMATOCRIT 38.6 % (32.4-45.2); HEMOGLOBIN 12.7 GM/dL (10.7-15.3); LYMPH % 33.2 % (8-40); MCH 30.1 pg (25.7-33.7); MCHC 32.8 g/dl (32.0-36.0); MEAN CELL VOLUME 91.6 fl (80-96); MEAN PLT VOLUME 9.3 fl (7.5-11.1); NEUT % 56.4 % (42.8-82.8); PLATELET COUNT 241 10^3/uL (134-434); RBC 4.21 M/mm3 (3.60-5.2); RDW 15.1 % (11.6-15.6); WHITE BLOOD COUNT 11.9 K/mm3 (4.0-10.0)
[2022-07-19 20:33] LABS: INR 1.01 (0.83-1.09); PROTHROMBIN TIME (PATIENT) 11.6 SEC (9.7-13.0)
[2022-07-19 20:36] LABS: ACTIVATED PTT 29.9 SECONDS (25.2-36.5)
[2022-07-19] MEDS ORDERED: TERBUTALINE SULFATE 1 MG/1 ML VIAL SQ ONE ×2 (20:41→21:15)
[2022-07-19 20:54] LABS: VENOUS BASE EXCESS -1.8 mmol/L (-2-2); VENOUS O2 SATURATION 21.6 % (70-80); VENOUS PCO2 50.7 mmHg (38-52); VENOUS PH 7.316 (7.310-7.410)
[2022-07-19 20:57] LABS: N-TERMINAL BNP 2089.7 pg/ml (5-450)
[2022-07-19] MEDS ORDERED: ALBUTEROL SO4 0.083% IH SOL 2.5 MG/3 ML VIAL.NEB. NEB ONE ×2 (21:10→21:16)
[2022-07-19] MEDS ORDERED: FUROSEMIDE 40 MG/4 ML INJECTABLE VIAL IVPUSH ONE (21:11)
[2022-07-19 21:28] LABS: CALCIUM 9.1 mg/dL (8.5-10.1)
[2022-07-19 21:29] LABS: ALBUMIN 3.2 g/dl (3.4-5.0); MAGNESIUM 1.6 mg/dL (1.8-2.4)
[2022-07-19 21:34] LABS: BILIRUBIN,TOTAL 0.5 mg/dL (0.2-1)
[2022-07-19 21:36] LABS: BLOOD UREA NITROGEN 19.7 mg/dL (7-18)
[2022-07-19] MEDS ORDERED: CEFTRIAXONE 1,000 MG in DEXTROSE 5%-WATER - 50 ML IVPB ONE (22:45)
[2022-07-19] MEDS ORDERED: AZITHROMYCIN IVPB 500 MG in DEXTROSE 5%-WATER - 250 ML IVPB ONE (22:47)
[2022-07-20] MEDS ORDERED: FUROSEMIDE 40 MG/4 ML INJECTABLE VIAL ONE (00:27)
[2022-07-20] MEDS: INSULIN SLIDING SCALE (NOVOLOG) 1 VIAL SQ SCH ×4 (06:25→22:33)
[2022-07-20] MEDS: CEFTRIAXONE 1 GM in DEXTROSE 5%-WATER - 50 ML IVPB SCH (10:39)
[2022-07-20] MEDS: LISINOPRIL 20 MG TABLET PO SCH (10:39)
[2022-07-20] MEDS: ENOXAPARIN NA (PORCINE) 40 MG/0.4 ML DISP.SYRIN SQ SCH (10:39)
[2022-07-20] MEDS: AZITHROMYCIN 500 MG TABLET PO SCH (11:12)
[2022-07-20] MEDS ORDERED: MAGNESIUM SULF 50% (8.12 MEQ/2 ML-1 GM VIAL) IVPB ONE (12:30)
[2022-07-20] MEDS: FUROSEMIDE 40 MG/4 ML INJECTABLE VIAL IVPUSH SCH (13:30)
[2022-07-21] MEDS: FUROSEMIDE 40 MG/4 ML INJECTABLE VIAL IVPUSH SCH ×2 (05:50→15:26)
[2022-07-21] MEDS: INSULIN SLIDING SCALE (NOVOLOG) 1 VIAL SQ SCH ×4 (06:12→21:21)
[2022-07-21] MEDS ORDERED: FAMOTIDINE 20 MG TABLET PO SCH (10:00)
[2022-07-21] MEDS: LISINOPRIL 20 MG TABLET PO SCH (10:16)
[2022-07-21] MEDS: ASPIRIN COATED 81 MG TABLET.EC PO SCH (10:16)
[2022-07-21] MEDS: ENOXAPARIN NA (PORCINE) 40 MG/0.4 ML DISP.SYRIN SQ SCH (10:16)
[2022-07-21] MEDS: AZITHROMYCIN 500 MG TABLET PO SCH (10:17)
[2022-07-21] MEDS: CEFTRIAXONE 1 GM in DEXTROSE 5%-WATER - 50 ML IVPB SCH (10:18)
[2022-07-21 10:23] LABS: BASO % 0.3 % (0-2.0); EOS % 0.2 % (0-4.5); HEMOGLOBIN 12.2 GM/dL (10.7-15.3); LYMPH % 19.2 % (8-40); MCH 29.7 pg (25.7-33.7); MEAN PLT VOLUME 9.3 fl (7.5-11.1); MONO % 8.3 % (3.8-10.2); PLATELET COUNT 261 10^3/uL (134-434); RBC 4.11 M/mm3 (3.60-5.2); RDW 14.9 % (11.6-15.6); WHITE BLOOD COUNT 10.1 K/mm3 (4.0-10.0)
[2022-07-21 10:42] LABS: CHOLESTEROL 169 mg/dL (50-200); TRIGLYCERIDES 72 mg/dL (0-150)
[2022-07-21 10:43] LABS: LDL CHOLESTEROL (ONLY SJRH) 99 mg/dL (5-100)
[2022-07-21 10:45] LABS: BILIRUBIN,TOTAL 0.6 mg/dL (0.2-1); HDL CHOLESTEROL 57 mg/dL (40-60); TOT PROT 6.7 g/dl (6.4-8.2)
[2022-07-21 11:14] LABS: CALCIUM 8.7 mg/dL (8.5-10.1)
[2022-07-21 11:15] LABS: ALBUMIN 3.1 g/dl (3.4-5.0); MAGNESIUM 2.1 mg/dL (1.8-2.4)
[2022-07-21 11:18] LABS: CREATININE 0.8 mg/dL (0.55-1.3); PHOSPHOROUS 4.5 mg/dL (2.5-4.9)
[2022-07-21 11:29] LABS: BLOOD UREA NITROGEN 28.2 mg/dL (7-18)
[2022-07-21] MEDS: SENNOSIDES 8.6MG TABLET (FP) PO SCH (18:04)
[2022-07-21] MEDS: ATORVASTATIN CA 40 MG TABLET (FP) PO SCH (21:21)
[2022-07-21] MEDS ORDERED: traZODone HCL 50 MG TABLET (FP) PO SCH (22:00)
[2022-07-22] MEDS: INSULIN SLIDING SCALE (NOVOLOG) 1 VIAL SQ SCH ×4 (06:34→21:24)
[2022-07-22] MEDS: FUROSEMIDE 40 MG/4 ML INJECTABLE VIAL IVPUSH SCH (08:02)
[2022-07-22 10:32] LABS: HEMATOCRIT 38.7 % (32.4-45.2); HEMOGLOBIN 12.6 GM/dL (10.7-15.3); MCH 29.5 pg (25.7-33.7); MCHC 32.6 g/dl (32.0-36.0); MEAN CELL VOLUME 90.5 fl (80-96); MEAN PLT VOLUME 9.3 fl (7.5-11.1); PLATELET COUNT 259 10^3/uL (134-434); RBC 4.27 M/mm3 (3.60-5.2); RDW 14.9 % (11.6-15.6); WHITE BLOOD COUNT 10.1 K/mm3 (4.0-10.0)
[2022-07-22] MEDS: VITAMIN B COMPLEX W/C COMBO TABLET (FP) PO SCH (10:36)
[2022-07-22] MEDS: GABAPENTIN 100 MG CAPSULE PO SCH (10:36)
[2022-07-22] MEDS: LISINOPRIL 20 MG TABLET PO SCH (10:36)
[2022-07-22] MEDS: PANTOPRAZOLE 20 MG TABLET PO SCH (10:36)
[2022-07-22] MEDS: ASPIRIN COATED 81 MG TABLET.EC PO SCH (10:36)
[2022-07-22] MEDS: ENOXAPARIN NA (PORCINE) 40 MG/0.4 ML DISP.SYRIN SQ SCH (10:36)
[2022-07-22] MEDS ORDERED: INSULIN SLIDING SCALE (NOVOLOG) 1 VIAL SQ ONE (11:13)
[2022-07-22 11:22] LABS: BILIRUBIN,TOTAL 0.6 mg/dL (0.2-1); CALCIUM 8.6 mg/dL (8.5-10.1)
[2022-07-22 11:23] LABS: BLOOD UREA NITROGEN 37.4 mg/dL (7-18); MAGNESIUM 2.1 mg/dL (1.8-2.4); TOT PROT 6.6 g/dl (6.4-8.2)
[2022-07-22 11:25] LABS: CREATININE 0.9 mg/dL (0.55-1.3); PHOSPHOROUS 4.8 mg/dL (2.5-4.9)
[2022-07-22] MEDS ORDERED: MAG HYDROX/AL HYDROX/SIMETH 30 ML UNIT-DOSE CUP PO ONE ×2 (12:40→22:11)
[2022-07-22] MEDS ORDERED: SENNOSIDES 8.6MG TABLET (FP) PO SCH (13:50)
[2022-07-22] MEDS: SENNOSIDES 8.6MG TABLET (FP) PO SCH (14:07)
[2022-07-22 15:12] VITALS: RESP 18
[2022-07-22] MEDS: ATORVASTATIN CA 40 MG TABLET (FP) PO SCH (21:18)
[2022-07-23] MEDS: INSULIN SLIDING SCALE (NOVOLOG) 1 VIAL SQ SCH ×2 (06:12→11:36)
[2022-07-23] MEDS ORDERED: FUROSEMIDE 40 MG/4 ML INJECTABLE VIAL IVPUSH SCH (10:00)
[2022-07-23] MEDS ORDERED: FUROSEMIDE 40 MG TABLET (FP) PO SCH (10:00)
[2022-07-23] MEDS: LISINOPRIL 20 MG TABLET PO SCH (11:02)
[2022-07-23] MEDS: ENOXAPARIN NA (PORCINE) 40 MG/0.4 ML DISP.SYRIN SQ SCH (11:02)
[2022-07-23] MEDS: GABAPENTIN 100 MG CAPSULE PO SCH (11:02)
[2022-07-23] MEDS: ASPIRIN COATED 81 MG TABLET.EC PO SCH (11:03)
[2022-07-23] MEDS: PANTOPRAZOLE 20 MG TABLET PO SCH (11:03)
[2022-07-23] MEDS: VITAMIN B COMPLEX W/C COMBO TABLET (FP) PO SCH (11:04)
[2022-07-23 11:07] LABS: HEMATOCRIT 39.3 % (32.4-45.2); HEMOGLOBIN 12.8 GM/dL (10.7-15.3); MCH 29.7 pg (25.7-33.7); MCHC 32.6 g/dl (32.0-36.0); MEAN CELL VOLUME 91.3 fl (80-96); MEAN PLT VOLUME 9.1 fl (7.5-11.1); PLATELET COUNT 245 10^3/uL (134-434); WHITE BLOOD COUNT 9.8 K/mm3 (4.0-10.0)
[2022-07-23 11:27] LABS: CALCIUM 8.8 mg/dL (8.5-10.1)
[2022-07-23 11:28] LABS: BLOOD UREA NITROGEN 32.1 mg/dL (7-18)
[2022-07-23 11:31] LABS: CREATININE 0.8 mg/dL (0.55-1.3)
[2022-07-23 12:58] VITALS: TEMP 98.6
[2022-07-23] MEDS ORDERED: FUROSEMIDE 20 MG TABLET (FP) PO SCH (14:00)
[2022-07-23 16:06] VITALS: BP 146/76; PULSE 76
== END 2022-07-23 16:43 | disposition home or self-care (01) | DRG 291 ==
LOC: JER 18:59 → JERBED 22:37 → J5S 07-20 01:46
PROVIDERS: ADMIT Internal Medicine; ATTEND Internal Medicine
DX: I11.0 Hypertensive heart disease with heart failure (principal); I50.31 Acute diastolic (congestive) heart failure; J18.9 Pneumonia, unspecified organism; E78.00 Pure hypercholesterolemia, unspecified; E11.9 Type 2 diabetes mellitus without complications; E66.9 Obesity, unspecified; Z68.32 Body mass index [BMI] 32.0-32.9, adult; K21.9 Gastro-esophageal reflux disease without esophagitis; K57.90 Diverticulosis of intestine, part unspecified, without perforation or abscess without bleeding; M54.30 Sciatica, unspecified side; D72.829 Elevated white blood cell count, unspecified; I49.3 Ventricular premature depolarization
CPT/HCPCS: 0241U-QW; 36415; 71045-TC-FY; 71275-TC; 80048; 80053; 80061; 82803; 83036; 83735; 83880; 84100; 84484; 85025; 85027; 85379; 85610; 85730; 86480; 93005; 93010; 94761; 97116-GP; 97161-GP; 99285-25; J1100; Q9967

== ENCOUNTER 2023-04-08 09:37 | Emergency (ER) | payer OTHER ==
[2023-04-08 09:48] VITALS: BMI 36.1
[2023-04-08 11:48] LABS: EPI CELLS 12 /uL (0-25.1); HYALINE CASTS 1 /uL (0-3.1); PH,URINE 7.5 (5.0-8.0); URINE APPEARANCE CLEAR; URINE BACTERIA 43 /uL (0-1359); URINE BILIRUBIN NEGATIVE (NEGATIVE); URINE COLOR YELLOW; URINE GLUCOSE (UA) NEGATIVE (NEGATIVE); URINE KETONE NEGATIVE (NEGATIVE); URINE LEUK ESTERASE 2+ (NEGATIVE); URINE NITRITE NEGATIVE (NEGATIVE); URINE PROTEIN NEGATIVE (NEGATIVE); URINE RBC 5 /uL (0-23.9); URINE UROBILINOGEN 0.2 mg/dL (0.2-1.0); URINE WBC 5 /uL (0-25.8)
[2023-04-08 11:49] LABS: HEMATOCRIT 36.8 % (32.4-45.2); HEMOGLOBIN 12.5 GM/dL (10.7-15.3); MCH 30.4 pg (25.7-33.7); MCHC 33.9 g/dl (32.0-36.0); MEAN CELL VOLUME 89.9 fl (80-96); MEAN PLT VOLUME 9.5 fl (7.5-11.1); PLATELET COUNT 242 10^3/uL (134-434); RBC 4.09 M/mm3 (3.60-5.2); RDW 13.9 % (11.6-15.6); WHITE BLOOD COUNT 7.3 K/mm3 (4.0-10.0)
[2023-04-08 12:14] LABS: CALCIUM 8.7 mg/dL (8.5-10.1); CHLORIDE 103 mmol/L (98-107); SODIUM 134 mmol/L (136-145)
[2023-04-08 12:15] LABS: ALBUMIN 2.9 g/dl (3.4-5.0); BLOOD UREA NITROGEN 12.3 mg/dL (7-18); CO2 32 mmol/L (21-32); GLUCOSE,RANDOM 118 mg/dL (74-106); INR 1.02 (0.83-1.09); MAGNESIUM 2.5 mg/dL (1.8-2.4); PROTHROMBIN TIME (PATIENT) 11.8 SEC (9.7-13.0)
[2023-04-08 12:18] LABS: CREATININE 0.7 mg/dL (0.55-1.3)
[2023-04-08 12:20] LABS: BILIRUBIN,TOTAL 0.4 mg/dL (0.2-1); TOT PROT 7.7 g/dl (6.4-8.2)
[2023-04-08 12:21] LABS: ALK PHOS 70 U/L (45-117)
[2023-04-08 12:23] LABS: ANION GAP -1 MMOL/L (8-16); SGOT/AST 124 U/L (15-37); SGPT/ALT 27 U/L (13-61)
[2023-04-08] MEDS ORDERED: CEFTRIAXONE 1,000 MG in DEXTROSE 5%-WATER - 50 ML IVPB ONE (12:33)
[2023-04-08] MEDS ORDERED: CEFTRIAXONE 1 GM/50 ML BAG ONE (12:41)
[2023-04-08 13:46] LABS: POTASSIUM 4.5 mmol/L (3.5-5.1)
[2023-04-08 13:47] LABS: CALCIUM 8.6 mg/dL (8.5-10.1)
[2023-04-08 13:48] LABS: BLOOD UREA NITROGEN 12.9 mg/dL (7-18); MAGNESIUM 2.2 mg/dL (1.8-2.4)
[2023-04-08 13:51] LABS: CREATININE 0.6 mg/dL (0.55-1.3)
[2023-04-08 13:53] LABS: BILIRUBIN,TOTAL 0.3 mg/dL (0.2-1); TOT PROT 6.5 g/dl (6.4-8.2)
[2023-04-08 14:43] VITALS: TEMP 98.1
[2023-04-08 16:23] VITALS: BP 147/66; PULSE 77; RESP 19
== END 2023-04-08 16:23 | disposition home or self-care (01) ==
LOC: JER 09:37
DX: N30.00 Acute cystitis without hematuria (principal); R53.1 Weakness
CPT/HCPCS: 36415; 71045-TC-FY; 80053; 81003; 83735; 84484; 85027; 85610; 87086; 93005; 93010; 96365; 99285-25

== ENCOUNTER 2023-11-18 09:29 | Emergency (ER) | payer OTHER ==
[2023-11-18 10:19] VITALS: TEMP 97.6; BMI 34.2
[2023-11-18 10:43] LABS: BASO % 0.6 % (0-2.0); EOS % 3.3 % (0-4.5); HEMATOCRIT 36.7 % (32.4-45.2); HEMOGLOBIN 12.1 GM/dL (10.7-15.3); LYMPH % 21.4 % (8-40); MCH 30.1 pg (25.7-33.7); MCHC 32.9 g/dl (32.0-36.0); MEAN CELL VOLUME 91.4 fl (80-96); MEAN PLT VOLUME 8.2 fl (7.5-11.1); MONO % 9.3 % (3.8-10.2); NEUT % 65.4 % (42.8-82.8); PLATELET COUNT 290 10^3/uL (134-434); RBC 4.02 M/mm3 (3.60-5.2); RDW 13.6 % (11.6-15.6); WHITE BLOOD COUNT 7.4 K/mm3 (4.0-10.0)
[2023-11-18 10:49] LABS: INR 0.96 (0.83-1.09); PROTHROMBIN TIME (PATIENT) 10.9 SEC (9.7-13.0)
[2023-11-18 10:52] LABS: ACTIVATED PTT 29.7 SECONDS (25.2-36.5)
[2023-11-18 11:07] LABS: POTASSIUM 4.7 mmol/L (3.5-5.1)
[2023-11-18 11:09] LABS: BLOOD UREA NITROGEN 11.6 mg/dL (7-18)
[2023-11-18 11:12] LABS: CREATININE 0.7 mg/dL (0.55-1.3)
[2023-11-18 11:14] LABS: BILIRUBIN,TOTAL 0.4 mg/dL (0.2-1); TOT PROT 6.5 g/dl (6.4-8.2)
[2023-11-18 11:57] VITALS: RESP 16
[2023-11-18 12:24] VITALS: BP 179/80; PULSE 72
[2023-11-18] MEDS ORDERED: FAMOTIDINE 20 MG/50 ML IVPB 20 MG/50 ML MG IVPB ONE (14:10)
[2023-11-18] MEDS ORDERED: MAG HYDROX/AL HYDROX/SIMETH 30 ML UNIT-DOSE CUP ONE (14:10)
[2023-11-18] MEDS: MAG HYDROX/AL HYDROX/SIMETH 30 ML UNIT-DOSE CUP PO ONE (14:14)
[2023-11-18] MEDS: FAMOTIDINE 20 MG/50 ML IVPB 20 MG/50 ML MG IVPB ONE (14:15)
== END 2023-11-18 17:00 | disposition home or self-care (01) ==
LOC: JER 09:29
PROC: 3E033GC Introduction of Other Therapeutic Substance into Peripheral Vein, Percutaneous Approach (ICD-10-PCS; principal; 2023-11-18)
DX: R07.2 Precordial pain (principal); R06.02 Shortness of breath; R10.9 Unspecified abdominal pain; K52.9 Noninfective gastroenteritis and colitis, unspecified
CPT/HCPCS: 36415; 71045-TC-FY; 71275-TC; 74174-TC; 80053; 84484; 85025; 85610; 85730; 93005; 93010; 96365; 99285-25; Q9967

== ENCOUNTER 2024-01-29 08:29 | Observation (INO) | payer OTHER ==
[2024-01-29 08:37] VITALS: BMI 29.2
[2024-01-29] MEDS ORDERED: ACETAMINOPHEN INJECTION 100 ML IVPB ONE (09:29)
[2024-01-29] MEDS: ACETAMINOPHEN 1000 MG/100 ML BAG IVPB ONE (09:52)
[2024-01-29] MEDS ORDERED: MAG HYDROX/AL HYDROX/SIMETH 30 ML UNIT-DOSE CUP ONE (09:55)
[2024-01-29] MEDS ORDERED: FAMOTIDINE 10 MG/ML VIAL IVPB ONE (09:55)
[2024-01-29] MEDS: FAMOTIDINE 20 MG/50 ML IVPB 20 MG/50 ML MG IVPB ONE (10:01)
[2024-01-29] MEDS: MAG HYDROX/AL HYDROX/SIMETH 30 ML UNIT-DOSE CUP PO ONE (10:01)
[2024-01-29 10:18] LABS: BASO % 0.6 % (0-2.0); EOS % 2.7 % (0-4.5); HEMATOCRIT 36.2 % (32.4-45.2); MCH 29.5 pg (25.7-33.7); MEAN CELL VOLUME 89.4 fl (80-96); MEAN PLT VOLUME 8.9 fl (7.5-11.1); MONO % 10.4 % (3.8-10.2); NEUT % 64.3 % (42.8-82.8); PLATELET COUNT 251 10^3/uL (134-434); RBC 4.05 M/mm3 (3.60-5.2); RDW 14.6 % (11.6-15.6); WHITE BLOOD COUNT 6.5 K/mm3 (4.0-10.0)
[2024-01-29 10:36] LABS: CALCIUM 8.5 mg/dL (8.5-10.1); CHLORIDE 103 mmol/L (98-107); SODIUM 136 mmol/L (136-145)
[2024-01-29 10:38] LABS: ALBUMIN 3.1 g/dl (3.4-5.0); BLOOD UREA NITROGEN 15.3 mg/dL (7-18); CO2 31 mmol/L (21-32); GLUCOSE,RANDOM 104 mg/dL (74-106)
[2024-01-29 10:41] LABS: CREATININE 0.7 mg/dL (0.55-1.3); SGOT/AST 92 U/L (15-37)
[2024-01-29 10:43] LABS: BILIRUBIN,TOTAL 0.6 mg/dL (0.2-1); TOT PROT 7.5 g/dl (6.4-8.2)
[2024-01-29 10:44] LABS: ALK PHOS 73 U/L (45-117)
[2024-01-29 10:49] LABS: ANION GAP 3 mmol/L (4-13); POTASSIUM 7.8 mmol/L (3.5-5.1); SGPT/ALT 34 U/L (13-61)
[2024-01-29 11:50] LABS: POTASSIUM 4.6 mmol/L (3.5-5.1)
[2024-01-29 11:51] LABS: CALCIUM 9.3 mg/dL (8.5-10.1)
[2024-01-29 11:52] LABS: BLOOD UREA NITROGEN 14.9 mg/dL (7-18)
[2024-01-29 11:55] LABS: CREATININE 0.7 mg/dL (0.55-1.3)
[2024-01-29] MEDS ORDERED: LISINOPRIL 20 MG TABLET ONE (13:57)
[2024-01-29] MEDS ORDERED: ASPIRIN 81 MG CHEWABLE TABLETS ONE (13:57)
[2024-01-29] MEDS: LISINOPRIL 20 MG TABLET PO ONE (14:04)
[2024-01-29] MEDS: ASPIRIN 81 MG CHEWABLE TABLETS PO ONE (14:04)
[2024-01-29] MEDS ORDERED: ACETAMINOPHEN 325 MG TABLET (FP) PO PRN (14:35)
[2024-01-29] MEDS: HEPARIN NA (PORCINE) 5,000 UNITS/ML 1ML VIAL SQ SCH (21:37)
[2024-01-29] MEDS: ATORVASTATIN CA 40 MG TABLET (FP) PO SCH (21:37)
[2024-01-30] MEDS: FUROSEMIDE 40 MG TABLET (FP) PO SCH (05:28)
[2024-01-30] MEDS ORDERED: FUROSEMIDE 40 MG TABLET (FP) PO SCH (06:00)
[2024-01-30 07:31] LABS: BASO % 0.9 % (0-2.0); EOS % 3.3 % (0-4.5); HEMATOCRIT 37.1 % (32.4-45.2); HEMOGLOBIN 12.3 GM/dL (10.7-15.3); LYMPH % 23.5 % (8-40); MCH 29.9 pg (25.7-33.7); MEAN CELL VOLUME 90.4 fl (80-96); MEAN PLT VOLUME 9.2 fl (7.5-11.1); NEUT % 61.3 % (42.8-82.8); PLATELET COUNT 235 10^3/uL (134-434); RBC 4.11 M/mm3 (3.60-5.2); RDW 14.7 % (11.6-15.6); WHITE BLOOD COUNT 6.3 K/mm3 (4.0-10.0)
[2024-01-30 08:03] LABS: ALBUMIN 3.3 g/dl (3.4-5.0); CALCIUM 8.8 mg/dL (8.5-10.1)
[2024-01-30 08:07] LABS: BILIRUBIN,TOTAL 0.6 mg/dL (0.2-1); CREATININE 0.6 mg/dL (0.55-1.3)
[2024-01-30] MEDS: LISINOPRIL 20 MG TABLET PO SCH (09:55)
[2024-01-30] MEDS: SENNOSIDES 8.6MG TABLET (FP) PO SCH (09:56)
[2024-01-30] MEDS: PANTOPRAZOLE 20 MG TABLET PO SCH (09:56)
[2024-01-30] MEDS: metFORMIN HCL 500 MG TABLET (FP) PO SCH (09:57)
[2024-01-30] MEDS: ASPIRIN 81 MG CHEWABLE TABLETS PO SCH (09:57)
[2024-01-30] MEDS ORDERED: GABAPENTIN 100 MG CAPSULE PO SCH (10:00)
[2024-01-30] MEDS: KETOROLAC TROMETHAMINE 15 MG/ML VIAL IVPUSH ONE (12:39)
[2024-01-30] MEDS: FAMOTIDINE 20 MG/50 ML IVPB 20 MG/50 ML MG IVPB ONE (12:40)
[2024-01-30] MEDS: VITAMIN B COMP W-C 1 EA TABLET (NEPHRO-VITE) PO SCH (12:42)
[2024-01-30] MEDS: FUROSEMIDE 20 MG TABLET (FP) PO SCH (15:48)
[2024-01-30] MEDS: GABAPENTIN 300 MG CAPSULE PO SCH (15:48)
[2024-01-31 09:28] VITALS: BP 130/64; PULSE 75; RESP 22; TEMP 98.1
== END 2024-01-31 18:16 | disposition home or self-care (01) ==
LOC: JER 08:29 → JERBED 13:54 → J4S 16:43
PROVIDERS: ADMIT Internal Medicine; ATTEND Internal Medicine
PROC: 3E033NZ Introduction of Analgesics, Hypnotics, Sedatives into Peripheral Vein, Percutaneous Approach (ICD-10-PCS; principal; 2024-01-29)
PROC: 3E0333Z Introduction of Anti-inflammatory into Peripheral Vein, Percutaneous Approach (ICD-10-PCS; 2024-01-29)
PROC: 3E023GC Introduction of Other Therapeutic Substance into Muscle, Percutaneous Approach (ICD-10-PCS; 2024-01-29)
DX: R07.9 Chest pain, unspecified (principal); I10 Essential (primary) hypertension; E11.42 Type 2 diabetes mellitus with diabetic polyneuropathy; E78.5 Hyperlipidemia, unspecified; K21.9 Gastro-esophageal reflux disease without esophagitis
CPT/HCPCS: 0241U-QW; 36415; 71045-TC-FY; 80048; 80053; 82962; 83690; 84443; 84484; 85025; 93005; 93010; 96365; 96366; 96372; 96375; 97116-GP; 97161-GP; 99285-25; G0378; J0131; J1644

== ENCOUNTER 2024-02-07 12:19 | Emergency (ER) | payer OTHER ==
[2024-02-07 13:01] VITALS: BMI 33.2
[2024-02-07 15:17] LABS: BASO % 0.7 % (0-2.0); EOS % 2.2 % (0-4.5); HEMATOCRIT 39.2 % (32.4-45.2); HEMOGLOBIN 12.9 GM/dL (10.7-15.3); LYMPH % 27.9 % (8-40); MCH 29.7 pg (25.7-33.7); MEAN PLT VOLUME 8.5 fl (7.5-11.1); MONO % 9.6 % (3.8-10.2); NEUT % 59.6 % (42.8-82.8); PLATELET COUNT 287 10^3/uL (134-434); RBC 4.35 M/mm3 (3.60-5.2); RDW 14.6 % (11.6-15.6); WHITE BLOOD COUNT 8.5 K/mm3 (4.0-10.0)
[2024-02-07 15:40] LABS: POTASSIUM 4.7 mmol/L (3.5-5.1)
[2024-02-07 15:42] LABS: ALBUMIN 3.4 g/dl (3.4-5.0); BLOOD UREA NITROGEN 13.9 mg/dL (7-18); CALCIUM 9.5 mg/dL (8.5-10.1)
[2024-02-07 15:45] LABS: CREATININE 0.7 mg/dL (0.55-1.3)
[2024-02-07 15:47] LABS: BILIRUBIN,TOTAL 0.5 mg/dL (0.2-1); TOT PROT 7.6 g/dl (6.4-8.2)
[2024-02-07] MEDS ORDERED: ACETAMINOPHEN INJECTION 100 ML IVPB ONE (16:13)
[2024-02-07] MEDS: SODIUM CHLORIDE 0.9% 500 ML INFUS.BAG IV ONE (16:20)
[2024-02-07] MEDS: ACETAMINOPHEN 1000 MG/100 ML BAG IVPB ONE (16:20)
[2024-02-07 19:13] VITALS: BP 134/86; PULSE 75; RESP 18; TEMP 98.4
== END 2024-02-07 19:30 | disposition home or self-care (01) ==
LOC: JER 12:19
PROC: 3E033NZ Introduction of Analgesics, Hypnotics, Sedatives into Peripheral Vein, Percutaneous Approach (ICD-10-PCS; principal; 2024-02-07)
DX: M79.10 Myalgia, unspecified site (principal); R10.13 Epigastric pain; R11.0 Nausea; R06.02 Shortness of breath; R07.89 Other chest pain; M54.50 Low back pain, unspecified; M54.2 Cervicalgia; R51.9 Headache, unspecified; Z20.822 Contact with and (suspected) exposure to COVID-19
CPT/HCPCS: 0241U-QW; 36415; 71045-TC-FY; 74177-TC; 80053; 82550; 82962; 83690; 84484; 85025; 93005; 93010; 96374; 99285-25; J0131; Q9967

== ENCOUNTER 2024-04-24 17:02 | Emergency (ER) | payer OTHER ==
[2024-04-24 17:53] VITALS: RESP 17; TEMP 97.6; BMI 32.0
[2024-04-24 18:36] LABS: BASO % 0.4 % (0-2.0); EOS % 1.2 % (0-4.5); HEMOGLOBIN 11.6 GM/dL (10.7-15.3); LYMPH % 18.6 % (8-40); MCH 28.5 pg (25.7-33.7); MCHC 32.1 g/dl (32.0-36.0); MEAN PLT VOLUME 8.5 fl (7.5-11.1); NEUT % 71.8 % (42.8-82.8); PLATELET COUNT 273 10^3/uL (134-434); RBC 4.05 M/mm3 (3.60-5.2); WHITE BLOOD COUNT 8.4 K/mm3 (4.0-10.0)
[2024-04-24 18:39] LABS: INR 1.01 (0.83-1.09); PROTHROMBIN TIME (PATIENT) 11.6 SEC (9.7-13.0)
[2024-04-24] MEDS ORDERED: FAMOTIDINE 20 MG TABLET ONE (18:44)
[2024-04-24] MEDS ORDERED: ACETAMINOPHEN 325 MG TABLET (FP) ONE (18:44)
[2024-04-24] MEDS ORDERED: MAG HYDROX/AL HYDROX/SIMETH 30 ML UNIT-DOSE CUP ONE (18:45)
[2024-04-24] MEDS: ACETAMINOPHEN 325 MG TABLET (FP) PO ONE (18:49)
[2024-04-24] MEDS: FAMOTIDINE 20 MG TABLET PO ONE (18:49)
[2024-04-24] MEDS: MAG HYDROX/AL HYDROX/SIMETH 30 ML UNIT-DOSE CUP PO ONE (18:49)
[2024-04-24 19:00] LABS: POTASSIUM 4.2 mmol/L (3.5-5.1)
[2024-04-24 19:02] LABS: ALBUMIN 3.3 g/dl (3.4-5.0); BLOOD UREA NITROGEN 20.2 mg/dL (7-18); MAGNESIUM 2.1 mg/dL (1.8-2.4)
[2024-04-24 19:05] LABS: CREATININE 0.6 mg/dL (0.55-1.3)
[2024-04-24 19:07] LABS: BILIRUBIN,TOTAL 0.3 mg/dL (0.2-1)
[2024-04-24 19:10] LABS: N-TERMINAL BNP 634.1 pg/ml (5-450)
[2024-04-24 19:36] VITALS: BP 176/77; PULSE 71
== END 2024-04-24 22:27 | disposition admitted as inpatient to this hospital (09) ==
LOC: JER 17:02
DX: R42 Dizziness and giddiness (principal); R51.9 Headache, unspecified; R07.89 Other chest pain
CPT/HCPCS: 36415; 70450-TC; 71045-TC-FY; 80053; 83690; 83735; 83880; 84484; 85025; 85610; 86850; 86900; 86901; 93005; 93010; 99285-25

== ENCOUNTER 2024-12-23 19:27 | Emergency (ER) | payer OTHER ==
[2024-12-23 19:37] VITALS: TEMP 98.7; BMI 32.2
[2024-12-23 20:43] LABS: ABSOLUTE IMMATURE GRANULOCYTES 0.02 x10^3/uL (0.0-0.031); MEAN CELL VOLUME 94.4 fl (79.4-94.8)
[2024-12-23 20:45] LABS: BASOPHILS # 0.03 x10^3/uL (0.01-0.08); EOSINOPHIL % 3.9 % (0.7-5.8); EOSINOPHILS # 0.34 x10^3/uL (0.04-0.36); HEMOGLOBIN 12.5 g/dL (11.2-15.7); MCHC 32.1 g/dl (32.2-35.5); MEAN PLT VOLUME 11.6 fl (9.4-12.3); MONOCYTE # 0.93 x10^3/uL (0.24-0.86); MONOCYTE % 10.7 % (4.7-12.5); PLATELET COUNT 227 x10^3/uL (182-369)
[2024-12-23] MEDS ORDERED: ACETAMINOPHEN INJECTION 100 ML ONE (20:46)
[2024-12-23] MEDS: ACETAMINOPHEN 1000 MG/100 ML BAG IVPB ONE (20:49)
[2024-12-23 20:50] LABS: INR 1.07 (0.83-1.09); PROTHROMBIN TIME (PATIENT) 11.8 SEC (9.7-13.0)
[2024-12-23 20:53] LABS: ACTIVATED PTT 29.9 SECONDS (25.2-36.5)
[2024-12-23 21:10] LABS: POTASSIUM 4.4 mmol/L (3.5-5.1)
[2024-12-23 21:12] LABS: CALCIUM 9.4 mg/dL (8.5-10.1)
[2024-12-23 21:13] LABS: BLOOD UREA NITROGEN 16.4 mg/dL (7-18); MAGNESIUM 1.9 mg/dL (1.8-2.4)
[2024-12-23 21:16] LABS: CREATININE 0.7 mg/dL (0.55-1.3)
[2024-12-23 21:17] LABS: TOT PROT 6.6 g/dl (6.4-8.2)
[2024-12-23 21:19] LABS: BILIRUBIN,TOTAL 0.4 mg/dL (0.2-1)
[2024-12-23] MEDS ORDERED: SIMETHICONE 80 MG TAB.CHEW (FP) ONE (23:01)
[2024-12-23] MEDS ORDERED: LISINOPRIL 20 MG TABLET ONE (23:01)
[2024-12-23] MEDS: SIMETHICONE 80 MG TAB.CHEW (FP) PO ONE (23:11)
[2024-12-23] MEDS: LISINOPRIL 20 MG TABLET PO ONE (23:11)
[2024-12-23 23:12] VITALS: BP 154/76; PULSE 81; RESP 17
== END 2024-12-23 23:26 | disposition home or self-care (01) ==
LOC: JER 19:27
PROC: 3E033NZ Introduction of Analgesics, Hypnotics, Sedatives into Peripheral Vein, Percutaneous Approach (ICD-10-PCS; principal; 2024-12-23)
DX: R10.11 Right upper quadrant pain (principal); R10.13 Epigastric pain; R07.9 Chest pain, unspecified; R06.02 Shortness of breath; I10 Essential (primary) hypertension
CPT/HCPCS: 0241U-QW; 36415; 71045-TC-FY; 74177-TC; 80053; 83605; 83690; 83735; 84484; 85025; 85610; 85730; 93005; 93010; 96374; 99285-25; Q9967

== ENCOUNTER 2025-01-08 03:02 | Emergency (ER) | payer OTHER ==
[2025-01-08 03:15] VITALS: TEMP 98.4; BMI 33.2
[2025-01-08] MEDS ORDERED: FAMOTIDINE 20 MG/50 ML IVPB 20 MG/50 ML MG IVPB ONE (04:16)
[2025-01-08] MEDS ORDERED: ONDANSETRON 4 MG/2 ML VIAL ONE (04:16)
[2025-01-08] MEDS ORDERED: MAG HYDROX/AL HYDROX/SIMETH 30 ML UNIT-DOSE CUP ONE (04:17)
[2025-01-08] MEDS: ONDANSETRON 4 MG/2 ML VIAL IVPUSH ONE (04:25)
[2025-01-08] MEDS: MAG HYDROX/AL HYDROX/SIMETH 30 ML UNIT-DOSE CUP PO ONE (04:25)
[2025-01-08] MEDS: FAMOTIDINE 20 MG/50 ML IVPB 20 MG/50 ML MG IVPB ONE (04:25)
[2025-01-08 04:36] LABS: ABSOLUTE IMMATURE GRANULOCYTES 0.01 x10^3/uL (0.0-0.031); BASOPHILS # 0.04 x10^3/uL (0.01-0.08); EOSINOPHIL % 4.1 % (0.7-5.8); EOSINOPHILS # 0.29 x10^3/uL (0.04-0.36); MCHC 32.0 g/dl (32.2-35.5); MEAN CELL VOLUME 95.3 fl (79.4-94.8); MEAN PLT VOLUME 11.2 fl (9.4-12.3); MONOCYTE # 0.84 x10^3/uL (0.24-0.86); MONOCYTE % 11.9 % (4.7-12.5); RDW 14.3 % (12.5-17.0)
[2025-01-08 04:47] LABS: INR 1.08 (0.83-1.09); PROTHROMBIN TIME (PATIENT) 11.8 SEC (9.7-13.0)
[2025-01-08 04:50] LABS: ACTIVATED PTT 30.2 SECONDS (25.2-36.5)
[2025-01-08 04:59] LABS: GLUCOSE,RANDOM 114.0 mg/dL (74-106)
[2025-01-08 05:00] LABS: CO2 29.0 mmol/L (21-32)
[2025-01-08] MEDS ORDERED: SIMETHICONE 80 MG TAB.CHEW (FP) ONE (05:02)
[2025-01-08 05:03] LABS: CREATININE 0.7 mg/dL (0.55-1.3); SGOT/AST 24.0 U/L (15-37); SGPT/ALT 15.0 U/L (13-61)
[2025-01-08 05:04] LABS: TOT PROT 6.3 g/dl (6.4-8.2)
[2025-01-08 05:06] LABS: ALK PHOS 71.0 U/L (45-117)
[2025-01-08] MEDS: SIMETHICONE 80 MG TAB.CHEW (FP) PO ONE (05:06)
[2025-01-08 06:07] VITALS: BP 173/71; PULSE 68; RESP 20
[2025-01-08 06:30] LABS: HCV DIAGNOSTIC IN-HOUSE W/RFLX NON-REACTIVE (NONREACTIVE); HIV INTERPRETATION NEGATIVE (NEGATIVE)
== END 2025-01-08 06:54 | disposition home or self-care (01) ==
LOC: JER 03:02
PROC: 3E033GC Introduction of Other Therapeutic Substance into Peripheral Vein, Percutaneous Approach (ICD-10-PCS; principal; 2025-01-08)
PROC: 3E033GC Introduction of Other Therapeutic Substance into Peripheral Vein, Percutaneous Approach (ICD-10-PCS; 2025-01-08)
DX: R10.84 Generalized abdominal pain (principal); F41.9 Anxiety disorder, unspecified; R11.2 Nausea with vomiting, unspecified
CPT/HCPCS: 36415; 71045-TC-FY; 74177-TC; 80053; 82962; 83605; 83690; 83735; 84484; 85025; 85610; 85730; 86803; 86850; 86900; 86901; 87389; 93005; 93010; 99285-25; Q9967

== ENCOUNTER 2025-01-09 14:42 | Emergency (ER) | payer OTHER ==
[2025-01-09 14:55] VITALS: BP 144/68; PULSE 91; RESP 19; TEMP 98.4; BMI 33.2
[2025-01-09] MEDS ORDERED: ACETAMINOPHEN INJECTION 100 ML ONE (16:29)
[2025-01-09] MEDS ORDERED: MAG HYDROX/AL HYDROX/SIMETH 30 ML UNIT-DOSE CUP ONE (16:30)
[2025-01-09] MEDS ORDERED: FAMOTIDINE 20 MG/50 ML IVPB 20 MG/50 ML MG IVPB ONE (16:30)
[2025-01-09] MEDS: ACETAMINOPHEN 1000 MG/100 ML BAG IVPB ONE (16:45)
[2025-01-09] MEDS: FAMOTIDINE 20 MG/50 ML IVPB 20 MG/50 ML MG IVPB ONE (16:45)
[2025-01-09] MEDS: MAG HYDROX/AL HYDROX/SIMETH 30 ML UNIT-DOSE CUP PO ONE (16:45)
[2025-01-09] MEDS: LACTATED RINGERS SOLUTION 1000 ML INFUS.BAG IV ONE (16:45)
[2025-01-09 17:01] LABS: ABSOLUTE IMMATURE GRANULOCYTES 0.01 x10^3/uL (0.0-0.031); BASOPHILS # 0.02 x10^3/uL (0.01-0.08); EOSINOPHIL % 3.3 % (0.7-5.8); EOSINOPHILS # 0.24 x10^3/uL (0.04-0.36); MCHC 31.5 g/dl (32.2-35.5); MEAN CELL VOLUME 96.1 fl (79.4-94.8); MEAN PLT VOLUME 11.4 fl (9.4-12.3); MONOCYTE # 0.76 x10^3/uL (0.24-0.86); MONOCYTE % 10.3 % (4.7-12.5); RDW 14.6 % (12.5-17.0)
[2025-01-09 17:49] LABS: CO2 28.0 mmol/L (21-32); GLUCOSE,RANDOM 121.0 mg/dL (74-106)
[2025-01-09 17:53] LABS: CREATININE 0.8 mg/dL (0.55-1.3); SGOT/AST 44.0 U/L (15-37); SGPT/ALT 16.0 U/L (13-61)
[2025-01-09 17:54] LABS: ALK PHOS 70.0 U/L (45-117); TOT PROT 6.4 g/dl (6.4-8.2)
[2025-01-09 18:51] LABS: EPI CELLS 4 /uL (0-25.1); HYALINE CASTS 0 /uL (0-3.1); URINE APPEARANCE Error; URINE BACTERIA 32 /uL (0-1359); URINE BILIRUBIN NEGATIVE (NEGATIVE); URINE COLOR YELLOW; URINE GLUCOSE (UA) NEGATIVE (NEGATIVE); URINE KETONE NEGATIVE (NEGATIVE); URINE LEUK ESTERASE TRACE (NEGATIVE); URINE NITRITE NEGATIVE (NEGATIVE); URINE PROTEIN NEGATIVE (NEGATIVE); URINE RBC 8 /uL (0-23.9); URINE UROBILINOGEN 0.2 mg/dL (0.2-1.0); URINE WBC 14 /uL (0-25.8)
== END 2025-01-09 21:23 | disposition home or self-care (01) ==
LOC: JER 14:42
PROC: 3E033GC Introduction of Other Therapeutic Substance into Peripheral Vein, Percutaneous Approach (ICD-10-PCS; principal; 2025-01-09)
PROC: 3E033NZ Introduction of Analgesics, Hypnotics, Sedatives into Peripheral Vein, Percutaneous Approach (ICD-10-PCS; 2025-01-09)
DX: R10.11 Right upper quadrant pain (principal)
CPT/HCPCS: 36415; 80053; 81003; 82550; 83605; 83690; 83735; 84484; 85025; 87086; 93005; 93010; 99284-25